=== PATIENT | female | born 1990 | race Caucasian/White ===

== ENCOUNTER 2017-04-21 12:16 | Emergency (ER) | payer OTHER ==
[~2017-04-21] VITALS: Ht 169.6 cm; Wt 51.3 kg
[~2017-04-21 12:16] MED LIST: DIAZ10TA PO; HYDR-4003 PO; IBUP200C PO; MARIJUANA EXT; marijuana IH
[2017-04-21 12:34] VITALS: BP 113/78; PULSE 99; RESP 16; O2SAT 97
[2017-04-21] MEDS ORDERED: PEG/Electrolytes 4,000 mL Solution PO ONE (13:10)
--- NOTE | 2017-04-21 13:20 | ED.REPORT ---
HPI-Abd Pain F Under 40 Date of Service Apr 21, 2017 ED Provider: Goldy Gibson PA-C Chelsey is a 26-year-old female with a history of methamphetamine and heroin abuse who presents emergency Department with a chief complaint of septic poisoning. Patient complains of diffuse abdominal and rectal pain. She reports she's had a normal bowel movement in 8 days but complains of small-volume watery fecal incontinence. Associated with chills. Denies urinary symptoms, vaginal bleeding/discharge. She does not believe she is as her partners had a vasectomy. She continues use recreational drugs but is arranging placement in an inpatient facility. Nursing Notes Stated Complaint: SEPTIC POISONING Chief Complaint: Female Abdominal Pain Nursing Notes Reviewed: Yes Allergies: Coded Allergies: No Known Allergies (Verified Allergy, Unknown, 04/21/17) Scheduled ([marijuana]) 1 DOSE IH QID ([marijuana cream]) 1 APPLIC EXT WEEKLY Scheduled PRN Diazepam (Valium) 10 Mg Tablet 10 MG PO BID PRN PRN For Anxiety Hydrocodone-Acetaminophen 5-325 mg (Hydrocodone-Acetaminophen 5-325 mg) 1 Each Tablet 1 TAB PO QID PRN PRN For Pain Ibuprofen (Ibuprofen) 200 Mg Capsule 200-400 MG PO QID PRN PRN For Pain General Time Seen by MD: 12:47 Chief Complaint Constipation Past Medical History Past Medical History Notes: recently from 6 month inpatient treatment program for benzo and etoh abuse 05/2016 Past Medical History Borderline personality disorder Depression Anxiety Prior suicide attempt Self-mutilation Asthma GERD Substance abuse - benzo, etoh Past Surgical History none reported Smoking History Current Every Day Smoker Social History Alcohol Use: In recovery Drug Use: THC Other Social History: Poor social support, Lives with children, Local resident Occupation single lives by self, attends intensive outpatient and 05/2016 Ambulatory Status Independent Physical Exam General: Well appearing, well developed, very thin, mild distress. Head: Atraumatic, normocephalic. Eyes: No scleral icterus or injection. No discharge. Vision grossly intact. ENT: Voice clear, hearing grossly intact. Respiratory: Regular rate and rhythm. Breath sounds present, clear to auscultation and equal bilaterally. No respiratory distress. No increased work of breathing, speaks in complete sentences. Cardiovascular: Regular rate and rhythm, without murmur, gallop or rub. No pedal edema. DP pulse 2+ Gastrointestinal: Abdomen flat and diffusely tender to light touch. Bowel sounds normoactive. Rectal: Normal to inspection without masses or discharge. Firm stool is felt several inches inside the rectal vault. Examination performed with a relationship advisor. Back: Normal to inspection, diffusely tender. Skin: Warm and dry. Neurological: Grossly nonfocal. Psychological: Alert and oriented. Speech appropriate, linear and logical. Anxious. Initial Vital Signs Vital Signs (First) Date Time Temp Pulse Resp B/P Pulse Ox O2 Delivery O2 Flow Rate FiO2 04/21/17 12:34 36.8 99 16 113/78 97 Room Air Normal Re-Eval/Medical Decision Med Decision/Clinical Course 26-year-old female with a history of methamphetamine and heroin abuse presents to the emergency department concerned about sepsis. Complains of diffuse abdominal pain, most acute in the rectum and no bowel movement for 8 days. Admits to small volume watery fecal incontinence. Complains of chills and generally not feeling well. She reports that she is a current methamphetamine and heroin user that she has discontinued IV use. She is currently attempting to enter inpatient treatment and is engaged with services. Denies urinary symptoms, vaginal bleeding/discharge. Physical examination reveals diffuse tenderness through the abdomen and back. Firm stool is noted several inches into the rectal vault on rectal examination, which is performed with a relationship advisor. Patient does not tolerate attempts at digital disimpaction. Physical examination is otherwise benign. The patient appears well with good skin tone. Lungs are clear. Vital signs are normal. I discussed case with Dr. Walls who recommended senna and GoLYTELY rather than enema. We feel that constipation secondary to opiate use is the most likely cause of her abdominal pain. Her tenderness does not localize, which reduces concern for cholecystitis, appendicitis, ovarian torsion, ectopic . I discussed this plan with the patient, who feels this is a good approach. She wishes to be discharged home. Provided senna and GoLYTELY with instructions. Advised regarding primary care follow-up, provided emergency return precautions. Patient verbalized understanding of, and consent to, the plan. Discharge & Departure Primary Impression: Abdominal Pain Generalized Additional Impression: Constipation Constipation type: drug induced constipation Qualified Code: K59.03 - Drug induced constipation Disposition: Home Discharge Condition All VS Reviewed: Yes Condition: Stable Patient Instructions: Constipation (ED) Additional Instructions: Evaluation in the emergency department include interview and physical examination which suggests that your abdominal pain is most likely caused by constipation. He's been provided with a dose of senna here in the emergency department as well as a bottle of GoLYTELY. Drink half bottle of GoLYTELY when you get home. If you do not have good results in a few hours, finish the rest of the bottle. Follow-up with your primary care provider in the next few days to be sure this is progressing as expected. Return to the emergency department for new or worsening symptoms including worsening or changing abdominal pain, fever, repeated vomiting. Referrals: Jasbir Sutherland MD EDSupervising Provider for [facility]: Marii Walls MD copies to: Jasbir Sutherland MD, Seth PA-C Apr 21, 2017 13:19
== END 2017-04-21 14:11 | disposition home or self-care (01) ==
LOC: SED 12:16
DX: K59.03 Drug induced constipation (principal); T43.625A Adverse effect of amphetamines, initial encounter; F11.10 Opioid abuse, uncomplicated; K21.9 Gastro-esophageal reflux disease without esophagitis; F17.200 Nicotine dependence, unspecified, uncomplicated